=== PATIENT | female | born 1970 | race Caucasian/White ===

== ENCOUNTER 2018-12-16 10:49 | Inpatient (IN) | payer MEDICAID | END 2018-12-18 14:15 | disposition home or self-care (01) | LOC: ER 10:49 → EAST 14:18 | DX: N13.2 Hydronephrosis with renal and ureteral calculous obstruction (principal) ==

== ENCOUNTER 2023-06-12 06:13 | Emergency (ER) | payer MEDICAID ==
[~2023-06-12] VITALS: Ht 170.2 cm; Wt 70.6 kg
[2023-06-12 06:27] VITALS: PULSE 78; RESP 16; TEMP 97.7; O2SAT 97
[2023-06-12] MEDS ORDERED: ACETAMINOPHEN 500 MG TAB PO ONE (07:00)
[2023-06-12] MEDS ORDERED: IBUPROFEN 600 MG TAB PO ONE (07:00)
[2023-06-12] MEDS ORDERED: NABU-72 PO (08:14)
[2023-06-12 08:24] VITALS: BP 152/96
== END 2023-06-12 08:30 | disposition home or self-care (01) ==
LOC: ER 06:13
DX: R07.81 Pleurodynia (principal); M54.50 Low back pain, unspecified; M54.6 Pain in thoracic spine; E78.5 Hyperlipidemia, unspecified; Z79.899 Other long term (current) drug therapy; Z88.5 Allergy status to narcotic agent; Z88.2 Allergy status to sulfonamides; W10.8XXA Fall (on) (from) other stairs and steps, initial encounter; Y93.89 Activity, other specified; Y92.89 Other specified places as the place of occurrence of the external cause; Y99.8 Other external cause status
CPT/HCPCS: 71101; 72070; 72100